=== PATIENT | female | born 1990 | race Caucasian/White ===

== ENCOUNTER 2017-09-20 16:05 | Emergency (ER) | payer MEDICARE, MEDICAID ==
[2017-09-20 16:17] VITALS: BP 147/97
--- NOTE | 2017-09-20 16:20 | ERNOTE ---
Lower Extremity HPI - Narrative Date of Service: 09/20/17 - General Lower Extremities Pain: ankle: right Time Seen by Provider: 09/20/17 16:19 Source: patient, RN notes reviewed Exam Limitations: no limitations - Immun/Allergies/Home Medications Immunizations: IMMUNIZATION HX Immunizations Up to Date Yes History of Influenza Vaccine No Hx Pneumococcal Vaccination No Allergies/Adverse Reactions: Allergies Allergy/AdvReac Type Severity Reaction Status Date / Time No Known Allergies Allergy Verified 09/20/17 16:17 Home Medications: HOME MEDICATIONS Clonazepam [Klonopin] 0.5 mg PO DAILY PRN 12/01/13 [Last Taken Unknown] Docusate Sodium [Stool Softener] 50 mg PO DAILY PRN 12/01/13 [Last Taken Unknown ] Lansoprazole [Prevacid] 30 mg PO DAILY 12/01/13 [Last Taken Unknown] Multivitamin [Multi Vitamin Daily] 1 each PO DAILY 12/01/13 [Last Taken Unknown] Sertraline HCl [Zoloft] 100 mg PO DAILY 12/01/13 [Last Taken Unknown] Ziprasidone HCl [Geodon] 60 mg PO HS 12/01/13 [Last Taken Unknown] - History of Present Illness Narrative: 27 year old female presents to the ED for right ankle pain after twisting it when getting out of a car earlier today. She denies needing anything for pain at the present time. Date (Duration): 09/20/17 Time (Timing): 12:00 Method of Injury: Reports: twisted Modifying Factors - (Improves): Reports: rest Modifying Factors - (Worsens): Reports: movement Associated Symptoms: Denies: unable to bear weight, snapping, popping sensation Other Injuries: Reports: none Subsequent Symptoms: Denies: sensory loss, numbness, motor loss Prior Treament: Denies: similar symptoms before Review of Systems - Review of Systems Constitutional: Absent: recent illness, fever, malaise EYE: Present: no symptoms reported ENT: Present: no symptoms reported Respiratory: Present: no symptoms reported Cardiology: Present: no symptoms reported Gastrointestinal/Abdominal: Present: no symptoms reported Genitourinary: Present: no symptoms reported Musculoskeletal: Present: See HPI Skin: Absent: lesions, lumps, change in color Neurological: Present: See HPI Endocrine: Present: no symptoms reported Hematologic/Lymphatic: Absent: easy bruising, easy bleeding Psych: Present: anxiety - Patient's Past Medical History Patient History - Medical: Obesity, Other - Legally blind Patient History - Cardiac/Respiratory: No pertinent hx Patient History - Cancer: No Hx of Cancer Patient History - Surgical Procedures: No surgical history Patient History - Other: None LMP (females 10-50): 1 month - Social History Living Situations: home Psych History: Hx of Anxiety, Hx of Depression, Current tx/ever been on anti- depressants or anti-anxiety meds Smoking Status: Never smoker Alcohol Use: none Drug Use: none - Immunizations Immunizations Up to Date: Yes Hx Pneumococcal Vaccination: No History of Influenza Vaccine: No Physical Exam - Physical Exam General Appearance: Present: wd/wn, alert, no apparent distress, anxious, obese Head Exam: Present: normal inspection, no evidence of injury Respiratory: Present: no respiratory distress, no accessory muscle use Cardiovascular/Chest: Present: normal peripheral pulses Peripheral Pulses: N=norm/S=strong/W=weak/B=bound/A=absent: Dorsalis-pedis (R): Strong Extremity Exam: Present: decreased range of motion - Painful, right ankle, bony tenderness - Right ankle, medial malleolus. Absent: joint swelling, extremity edema, other - ecchymosis, deformity Neurological Exam: Present: alert, oriented, normal mood/affect, no motor/ sensory deficits Skin Exam: Present: normal color, warm/dry ED Progress - Vital Signs Patient's Vital Signs:: I have reviewed the patient's vital signs. Vital Signs: Vital Signs 09/20/17 16:12 Temperature 36.5 C Pulse Rate 97 Respiratory 15 Rate Blood Pressure 147/97 O2 Sat by Pulse 97 Oximetry - X-Ray X-Ray #1 X-Ray: ankle - Right Interpretation: Interp. by me X-ray Comments: No acute osseous abnormality noted - Progress/Reassessment Chief Complaint: Ankle Injury/ Pain Progress:: Unchanged Departure Clinical Impression: Ankle sprain Qualifiers: Encounter type: initial encounter Involved ligament of ankle: unspecified ligament Laterality: right Qualified Code(s): S93.401A - Sprain of unspecified ligament of right ankle, initial encounter - Departure Disposition: Home self-care Condition: Good Instructions: Ankle Sprain, [id number] Additional Instructions: Ice and elevate Wear RANDOLPH wrap as needed for support/compression Weight bearing as tolerated
== END 2017-09-20 17:00 | disposition home or self-care (01) ==
LOC: ER 16:05
DX: S93.401A Sprain of unspecified ligament of right ankle, initial encounter (principal); E66.9 Obesity, unspecified; Z68.41 Body mass index [BMI] 40.0-44.9, adult; X50.0XXA Overexertion from strenuous movement or load, initial encounter